=== PATIENT | male | born 1960 | race Caucasian/White ===

== ENCOUNTER 2017-10-12 12:15 | Emergency (ER) | payer BC ==
[2017-10-12] MEDS ORDERED: Sodium Chloride 0.9% 1000 ML 1,000 ML IV STA (12:17)
[2017-10-12 12:25] LABS: Mean Cell Volume 89.1 fl (78-100); Mean Corpuscular Hemoglobin 28.1 pg (26-32); Mean Platelet Volume 8.8 fl (6-9.5); Platelet Count 435 K/mm3 (150-450); Red Blood Count 4.66 M/mm3 (4.1-5.6); Red Cell Distribution Width 16.3 % (11.5-14.0); White Blood Count 16.3 K/mm3 (4.0-10.5)
--- NOTE | 2017-10-12 12:25 | ERPHSYRPT ---
- History of Present Illness Time Seen by Provider: 10/12/17 12:20 Source: patient, other (staff at cardiac rehabilitation) Exam Limitations: no limitations Physician History: This is a 57-year-old white male who I was called to respond for a rapid response. Patient was apparently at cardiac rehabilitation he has a history of atherosclerotic coronary artery disease had a bypass in the past apparently recently started on Flomax. States she's been having trouble standing up last several days he apparently was at cardiac rehabilitation got off the treadmill and had a near syncopal episode. On arrival patient is breathing patient does have a pulse he is vomiting. Patient is brought down to the emergency room him to monitor him with him patient was sinus rhythm approximately 90bpm he states that when he finished treadmill he began to feel weak apparently vomited he does not feel as if he passed out. Patient is alert and talking at this time. Patient is noted to have a blood pressure of 58 over 3 in the emergency room. Past medical history includes atherosclerotic coronary artery disease, high blood pressure, Patient states she's been having problems with his urine since bypass on August 23, 2017 and he was started on Flomax last week. Past surgical history includes CABG Social history patient denies tobacco alcohol or illicit drug use Timing/Duration: today (just prior to arrival to the emergency room) Severity: moderate Modifying Factors: Improves With: other (patient had just finished treadmill) Associated Symptoms: nausea, vomiting, diaphoresis, other (near syncopal episode in the emergency room with hypotension after treadmill), No abdominal pain, No shortness of breath, No heartburn, No cough, No chills, No chest pain, No fever, No headaches, No loss of appetite, No malaise, No rash Allergies/Adverse Reactions: No Known Drug Allergies Allergy (Verified 10/12/17 12:32) Home Medications: Allopurinol 300 mg [Zyloprim 300 mg] 300 mg DAILY 01/21/16 [History] Aspirin [Aspir-Low] 81 mg DAILY 10/12/17 [History] Labetalol HCl 100 mg [Trandate 100 MG] 100 mg DAILY 10/12/17 [History] Losartan Potassium 50 mg [Cozaar 50 MG] 50 mg DAILY 10/12/17 [History] Tamsulosin HCl 0.4 mg [Flomax 0.4 MG] 0.4 mg DAILY 10/12/17 [History] Zolpidem Tartrate [Ambien] 5 mg DAILY 10/12/17 [History] Hx Influenza Vaccination/Date Given: Yes - Review of Systems Constitutional: Malaise, Weakness, No Fever, No Chills, No Fatigue, No Lethargy , No Night Sweats, No Weight Loss Eyes: No Symptoms Ears, Nose, & Throat: No Symptoms, No Ear Pain, No Ear Discharge, No Hearing Changes, No Tinnitus, No Nose Pain, No Nose Congestion, No Nose Discharge, No Sinus Drainage, No Epistaxis, No Mouth Pain, No Mouth Swelling, No Loose Teeth, No Throat Pain, No Throat Swelling, No Hoarse, No Painful Swallowing, No Snoring Respiratory: No Cough, No Dyspnea Cardiac: Other (near syncopal episode with diaphoresis in cardiac rehabilitation) Abdominal/Gastrointestinal: Nausea, Vomiting Genitourinary Symptoms: Other (patient recently started on Flomax for urinary symptoms) Musculoskeletal: No Back Pain, No Neck Pain Skin: No Rash Neurological: Dizziness, No Focal Weakness, No Gait Changes, No Headache, No Irritability, No Lethargy, No Paralysis, No Parasthesia, No Seizure, No Sensory Changes, No Speech Changes, No Tics, No Tremors, No Vertigo, No Other ( near syncopal episode in cardiac rehabilitation) Psychological: No Symptoms Endocrine: No Symptoms All Other Systems: Reviewed and Negative - Past Medical History Pertinent Past Medical History: Yes Neurological History: No Pertinent History ENT History: Other Cardiac History: Hypertension Respiratory History: No Pertinent History Endocrine Medical History: No Pertinent History Musculoskeletal History: Other GI Medical History: GERD History: Other Psycho-Social History: No Pertinent History Male Reproductive Disorders: No Pertinent History Other Medical History: gout kidney stones. esohpageal stretching r/t difficulty swallowing - Past Surgical History Past Surgical History: Yes Neuro Surgical History: No Pertinent History Cardiac: No Pertinent History Respiratory: No Pertinent History Gastrointestinal: Other Genitourinary: No Pertinent History Musculoskeletal: No Pertinent History Male Surgical History: No Pertinent History Other Surgical History: throat surgery t&a nose surgery - Social History Smoking Status: Never smoker Exposure to second hand smoke: No Drug Use: none Patient Lives Alone: No - Nursing Vital Signs Nursing Vital Signs: Initial Vital Signs Temperature 97.8 F 10/12/17 12:17 Pulse Rate 94 H 10/12/17 12:17 Respiratory Rate 14 10/12/17 12:17 Blood Pressure 97/66 10/12/17 12:17 O2 Sat by Pulse Oximetry 100 10/12/17 12:17 Pain Scale Pain Intensity 0 - Physical Exam General Appearance: other (well-developed white male pale and diaphoretic) Eye Exam: PERRL/EOMI, eyes nml inspection Ears, Nose, Throat Exam: normal ENT inspection, TMs normal, pharynx normal, moist mucous membranes Neck Exam: normal inspection, non-tender, supple, full range of motion Respiratory Exam: other (lungs initially diminished) Cardiovascular Exam: regular rate/rhythm, normal heart sounds, normal peripheral pulses Gastrointestinal/Abdomen Exam: soft, normal bowel sounds, No tenderness, No mass Back Exam: normal inspection, normal range of motion, No CVA tenderness, No vertebral tenderness Extremity Exam: normal inspection, normal range of motion, pelvis stable Neurologic Exam: alert, oriented x 3, cooperative, normal mood/affect, nml cerebellar function, nml station & gait, sensation nml, No motor deficits Skin Exam: pale SpO2 Interpretation: normal (97% on 4 l body sander) - Course Nursing assessment & vital signs reviewed: Yes EKG Interpreted by Me: RATE (93 bpmj), Sinus Rhythm, Other (EKG: Sinus rhythm, 93 bpm axisSI/QIII pattern, Q waves in lead 3 and aVF, impression possible old inferior OH) - Radiology Exams Chest X-ray Interpretation: Discussed w/ radiologist (chest x-ray: New diffuse left lung interstitial alveolar opacity without consolidation/large effusion. Right lung clear. Heart is not enlarged and demonstrates interval CABG surgery. Bony thorax intact) Ordered Tests: Active Orders 24 hr Category Date Time Status Business Support Assistant STAT Care 10/12/17 12:17 Active EKG-ER Only STAT Care 10/12/17 12:17 Active IV Insertion STAT Care 10/12/17 12:17 Active Oxygen-ED Only NASAL CANNULA 2 lpm Care 10/12/17 12:17 Active Pulse Oximetry (ED) STAT Care 10/12/17 12:17 Active CHEST 1 VIEW (PORTABLE) Stat Exams 10/12/17 12:17 Completed BLOOD CULTURE Stat Lab 10/12/17 13:00 Received CBC W DIFF Stat Lab 10/12/17 12:15 Completed CMP Stat Lab 10/12/17 12:15 Completed CULTURE,URINE Stat Lab 10/12/17 13:55 Received D-DIMER QUANTITATION Stat Lab 10/12/17 12:15 Completed Manual Differential NC Stat Lab 10/12/17 12:15 Completed NT PRO BNP Stat Lab 10/12/17 12:15 Completed PROTIME WITH INR Stat Lab 10/12/17 12:15 Completed PTT Stat Lab 10/12/17 12:15 Completed TROPONIN Q3H Lab 10/12/17 12:15 Completed TROPONIN Q3H Lab 10/12/17 15:30 Ordered TROPONIN Q3H Lab 10/12/17 18:30 Ordered TROPONIN Q3H Lab 10/12/17 21:30 Ordered TROPONIN Q3H Lab 10/13/17 00:30 Ordered UA W/ MICROSCOPIC Stat Lab 10/12/17 13:55 Completed Medication Summary Generic Name Dose Route Start Last Admin Trade Name Freq PRN Reason Stop Dose Admin Ceftriaxone Sodium/Dextrose 1 g in 50 mls @ 100 mls/hr 10/12/17 13:58 Rocephin 1 Gm-D5w 50 Ml Bag IV 10/12/17 14:27 STAT STA Discontinued Medications Generic Name Dose Route Start Last Admin Trade Name Freq PRN Reason Stop Dose Admin Enoxaparin Sodium 90 mg 10/12/17 14:00 Enoxaparin Sodium 1 mg/kg (90 mg) 10/12/17 14:01 SQ STAT ONE Sodium Chloride 1,000 mls @ 999 mls/hr 10/12/17 12:17 10/12/17 12:17 Sodium Chloride 0.9% 1000 Ml IV 10/12/17 13:17 999 mls/hr .Q1H1M STA Administration Sodium Chloride Confirm 10/12/17 12:37 Sodium Chloride 0.9% 1000 Ml Administered 10/12/17 12:38 Dose 1,000 mls @ ud .ROUTE .StartSpanish-Olapic ONE Lab/Rad Data: Laboratory Result Diagrams 10/12/17 12:15 10/12/17 12:15 Laboratory Results 10/12/17 10/12/17 10/12/17 Range/Units 13:55 12:15 12:15 WBC (4.0-10.5) K/mm3 RBC (4.1-5.6) M/mm3 Hgb (12.5-18.0) gm/dl Hct (42-50) % MCV (78-100) fl MCH (26-32) pg MCHC (32-36) g/dl RDW (11.5-14.0) % Plt Count (150-450) K/mm3 MPV (6-9.5) fl Segmented Neutrophils (36.-66.) % Lymphocytes (Manual) (24-44) % Monocytes (Manual) (0.0-12.0) % Differential Comment Atypical Lymphocytes % Toxic Granulation Platelet Estimate (NORMAL) Anisocytosis INR 1.27 (0.8-3.0) APTT 33.0 (24.1-36.1) SECONDS D-Dimer 740 H* (0-500) ng/mL Sodium (136-145) mEq/L Potassium (3.5-5.1) mEq/L Chloride (98-107) mEq/L Carbon Dioxide (21-32) mEq/L Anion Gap (5-15) MEQ/L BUN (9-20) mg/dL Creatinine (0.55-1.30) mg/dl Estimated GFR ML/MIN Glucose (70-110) MG/DL Calcium (8.5-10.1) mg/dL Total Bilirubin (0.2-1.0) mg/dL AST (15-37) U/L ALT (12-78) U/L Alkaline Phosphatase (46-116) U/L Troponin I < 0.017 (0.000-0.056) ng/ml NT-Pro-B Natriuret Pep (0-125) pg/ml Serum Total Protein (6.4-8.2) gm/dL Albumin (3.4-5.0) g/dL Ur Collection Type VOID Urine Color BROWN (YELLOW) Urine Appearance HAZY (CLEAR) Urine pH 7.0 (5-6) Ur Specific [place] 1.005 (1.005-1.025) Urine Protein TRACE (Negative) Urine Ketones NEGATIVE (NEGATIVE) Urine Blood 250 (0-5) Rafi/ul Urine Nitrite NEGATIVE (NEGATIVE) Urine Bilirubin NEGATIVE (NEGATIVE) Urine Urobilinogen NORMAL (0-1) mg/dL Ur Leukocyte Esterase 2+ (NEGATIVE) Urine Microscopic RBC 15-25 (0-2) /HPF Urine Microscopic WBC 50-100 (0-5) /HPF Ur Epithelial Cells FEW (FEW) /HPF Urine Bacteria FEW (NEGATIVE) /HPF Urine Culture Reflexed YES (NO) Urine Glucose NEGATIVE (NEGATIVE) mg/dL Specimen Received 10/12/2017 1355 10/12/17 10/12/17 Range/Units 12:15 12:15 WBC 16.3 H (4.0-10.5) K/mm3 RBC 4.66 (4.1-5.6) M/mm3 Hgb 13.1 (12.5-18.0) gm/dl Hct 41.5 L (42-50) % MCV 89.1 (78-100) fl MCH 28.1 (26-32) pg MCHC 31.6 L (32-36) g/dl RDW 16.3 H (11.5-14.0) % Plt Count 435 (150-450) K/mm3 MPV 8.8 (6-9.5) fl Segmented Neutrophils 67 H (36.-66.) % Lymphocytes (Manual) 18 L (24-44) % Monocytes (Manual) 14 H (0.0-12.0) % Differential Comment ABNORMAL Atypical Lymphocytes 1 % Toxic Granulation 1+ Platelet Estimate INCREASED (NORMAL) Anisocytosis 1+ INR (0.8-3.0) APTT (24.1-36.1) SECONDS D-Dimer (0-500) ng/mL Sodium 140 (136-145) mEq/L Potassium 4.3 (3.5-5.1) mEq/L Chloride 105 (98-107) mEq/L Carbon Dioxide 22.2 (21-32) mEq/L Anion Gap 17.4 H (5-15) MEQ/L BUN 13 (9-20) mg/dL Creatinine 1.87 H (0.55-1.30) mg/dl Estimated GFR 40 ML/MIN Glucose 105 (70-110) MG/DL Calcium 9.7 (8.5-10.1) mg/dL Total Bilirubin 0.30 (0.2-1.0) mg/dL AST 21 (15-37) U/L ALT 32 (12-78) U/L Alkaline Phosphatase 80 (46-116) U/L Troponin I (0.000-0.056) ng/ml NT-Pro-B Natriuret Pep 250 H (0-125) pg/ml Serum Total Protein 7.8 (6.4-8.2) gm/dL Albumin 3.5 (3.4-5.0) g/dL Ur Collection Type Urine Color (YELLOW) Urine Appearance (CLEAR) Urine pH (5-6) Ur Specific [place] (1.005-1.025) Urine Protein (Negative) Urine Ketones (NEGATIVE) Urine Blood (0-5) Rafi/ul Urine Nitrite (NEGATIVE) Urine Bilirubin (NEGATIVE) Urine Urobilinogen (0-1) mg/dL Ur Leukocyte Esterase (NEGATIVE) Urine Microscopic RBC (0-2) /HPF Urine Microscopic WBC (0-5) /HPF Ur Epithelial Cells (FEW) /HPF Urine Bacteria (NEGATIVE) /HPF Urine Culture Reflexed (NO) Urine Glucose (NEGATIVE) mg/dL Specimen Received - Progress Progress: improved Progress Note: 10/12/17 12:29 This is a 57-year-old white male with history of atherosclerotic coronary artery disease with recent coronary artery bypass graft. Who had what appeared to be a near syncopal episode down in cardiac rehabilitation just prior to being brought down to the emergency room. Code rylan was called on arrival to the cardiac rehabilitation patient was noted to be sitting in a chair and was quite diaphoretic and pale in color he had vomited he did have a palpable pulse and he was able to respond. He is brought down to the emergency room patient is noted to have sinus sinus rhythm rhythm on the monitor patient with a palpable pulse on arrival blood pressure in the emergency room 97/59 Patient is currently satting 100% on 4 L of oxygen he was 97% he is alert and oriented he has full range of motion to his extremities. Patient does state that he recently was having problems with a urinary infection he has recently been placed on Flomax one week ago. Patient is receiving 1 L of normal saline CBC CMP troponin and d-dimer chest x- ray EKG have been ordered 10/12/17 14:01 Patient appears to be stable at this time blood pressure is stable pulse is stable. D-dimer is mildly elevated unfortunately patient's GFR is 40 and cannot get CTA. Troponin within normal limits. Chest x-ray shows new diffuse left lung interstitial alveolar opacity without consolidation/large effusion Case is discussed with Dr. Partida the patient's judicial assistant. He requests that the patient be given 1 dose of Lovenox 1 mg/kg subcutaneously,. Place on Rocephin 1 g IV. And transferred to [facility] for further evaluation and treatment. 10/12/17 14:24 patient with 50-100 white cells per high-power field in his urine. Patient has received IV normal saline and Rocephin. - Departure Time of Disposition: 14:02 Departure Disposition: Transfer ([facility] Dr. Partida) Clinical Impression: near syncopal episode, increased d-dimer, left lung interstitial opacity UTI (urinary tract infection) Qualifiers: Urinary tract infection type: site unspecified Hematuria presence: with hematuria Qualified Code(s): N39.0 - Urinary tract infection, site not specified ; R31.9 - Hematuria, unspecified; R31.9 - Hematuria, unspecified Condition: Fair Critical Care Time: Yes Critical Care Time(excluding separately billable procedures): 30-74 minutes Referrals: MELVIN EL MD [Primary Care Provider] -
[2017-10-12] MEDS ORDERED: Sodium Chloride 0.9% 1000 ML 1,000 ML ONE (12:37)
[2017-10-12 12:39] LABS: INR 1.27 (0.8-3.0); PROTIME 14.2 SECONDS (8.83-12.87)
[2017-10-12 12:58] LABS: ALBUMIN 3.5 g/dL (3.4-5.0); ANION GAP 17.4 MEQ/L (5-15); BILIRUBIN,TOTAL 0.3 mg/dL (0.2-1.0); Carbon Dioxide 22.2 mEq/L (21-32); Potassium 4.3 mEq/L (3.5-5.1); Total Protein 7.8 gm/dL (6.4-8.2)
--- NOTE | 2017-10-12 13:02 | XRAY ---
Indication: Syncopal episode. Vomiting. Low blood pressure. Comparison: January 20, 2016. Portable apical lordotic chest demonstrates new diffuse left lung interstitial alveolar opacity without consolidation/large effusion. Right lung clear. Heart is not enlarged and demonstrates interval CABG surgery. Bony thorax intact.
[2017-10-12 13:46] LABS: ANISOCYTOSIS 1+; ATYPICAL LYMPHS 1 %; Platelet Estimate INCREASED (NORMAL); Total Cells Counted 100
[2017-10-12 13:47] LABS: Toxic Granulation 1+
[2017-10-12] MEDS ORDERED: ROCEPHIN 1 Gm-D5w 50 ml Bag** 1 G/50 ML IVPB IV STA (13:58)
[2017-10-12] MEDS ORDERED: ENOXAPARIN SODIUM SQ ONE ×2 (14:00→14:34)
[2017-10-12 14:01] LABS: Collection Type VOID
[2017-10-12 14:02] LABS: Bilirubin NEGATIVE (NEGATIVE); Blood 250 Ery/ul (0-5); COMPLETE URINE MICROSCOPIC? YES; Glucose NEGATIVE (NEGATIVE); Leukocyte Esterase 2+ (NEGATIVE)
[2017-10-12 14:04] LABS: ADD URINE CULTURE? YES (NO)
[2017-10-12 14:14] LABS: WBC 50-100 /HPF (0-5)
[2017-10-12 14:15] LABS: Bacteria FEW /HPF (NEGATIVE); Epithelial Cells FEW /HPF (FEW)
[2017-10-12] MEDS ORDERED: ROCEPHIN 1 Gm-D5w 50 ml Bag** 1 G/50 ML IVPB IV ONE (14:34)
[2017-10-12 14:45] VITALS: BP 129/76; PULSE 86; O2SAT 98
== END 2017-10-12 15:02 | disposition short-term general hospital (02) ==
LOC: ED 12:15
DX: N39.0 Urinary tract infection, site not specified (principal); R31.9 Hematuria, unspecified; J84.9 Interstitial pulmonary disease, unspecified; R79.1 Abnormal coagulation profile; R55 Syncope and collapse; R11.2 Nausea with vomiting, unspecified; I25.10 Atherosclerotic heart disease of native coronary artery without angina pectoris; I10 Essential (primary) hypertension
CPT/HCPCS: 36000; 36415; 71010; 80053; 81000; 83880; 84484; 85025; 85379; 85610; 85730; 87040; 87086; 93005; 93041; 94799; 96360; 96361; 96365; 96372; 99285; J0696; J1650

== ENCOUNTER 2017-10-19 10:26 | Day surgery (SDC) | payer BC ==
--- NOTE | 2017-10-19 08:53 | HP ---
DATE OF SURGERY: 10/19/2017 HISTORY OF PRESENT ILLNESS: This is a 57 year-old who had Thomas catheter issue after a coronary artery bypass graft in August. He has history of polyps in the past. Last colonoscopy was about three years ago by Dr. Hammer. No bloody stools. No change in bowel movements. No abdominal pain. Family history negative for colon cancer. Question in the past of some air bubbles on urination. There was question whether he had some sort of colovesicular fistula or not. He has seen Dr. Hedrick for cystoscopy. He is in need of colonoscopy for evaluation. PAST MEDICAL HISTORY: Kidney stones, heart disease, diabetes. PAST SURGICAL HISTORY: Includes nose surgery, heart surgery, renal stone as well as some throat surgery in the past. She did have coronary artery bypass graft in the past. MEDICATIONS: Includes omeprazole, aspirin, Plavix, losartan, labetalol, Ambien, atorvastatin, metronidazole, levothyroxine, Tamsulosin. ALLERGIES: NKDA. FAMILY HISTORY: Hypertension, diabetes. SOCIAL HISTORY: No smoking or alcohol abuse. REVIEW OF SYSTEMS: Twelve systems reviewed per admission assessment. No chest pain or palpitations other systems negative or noncontributory as above and per preadmission questionnaire. No current abdominal pain. History of polyps. Question of air bubbles on urination. PHYSICAL EXAMINATION: GENERAL: No acute distress. HEENT: Sclerae nonicteric. NECK: No JVD. CHEST: Equal excursion, nonlabored breathing. CVS: Regular rate and rhythm. ABDOMEN: Soft. No peritoneal signs. EXTREMITIES: No significant edema. NEURO: Alert, moving extremities symmetrically. No gross motor deficits noted. RECTAL: Deferred timed to endoscopy exam. IMPRESSION: History of polyps. History of question of passing mass or air bubbles on urination unclear could have possible colovesicle fistula. He is in need of colonoscopy for further evaluation. Shown the risk sheet and explained the procedure in detail but not limited to bleeding, infection, small risk of bowel injury or perforation possibly requiring open procedure, ongoing morbidity, small risk of missed or nondiagnosis or incomplete exam possibly requiring barium enema, other studies or procedures as well as bowel prep or sedation, postoperative risk of nausea or cramping but not limited to. He will have to see Dr. Hedrick for consideration of cystoscopy. He understands and agrees to the planned procedure and will proceed with outpatient colonoscopy under MAC anesthesia.
[2017-10-19] MEDS ORDERED: DIPRIVAN 200 MG/20 ML IV ONE (10:27)
[2017-10-19] MEDS ORDERED: Versed 2 MG/2 ML Injection IV ONE (10:27)
[2017-10-19] MEDS ORDERED: Lactated Ringers 1,000 ML IV SCH (11:00)
[2017-10-19 14:04] VITALS: BP 113/47; PULSE 70; O2SAT 98
--- NOTE | 2017-10-20 10:02 | OP ---
SURGERY DATE/TIME: 10/19/2017 1232 PREOPERATIVE DIAGNOSES: 1) History of polyps. 2) History of question of colovesical fistula passing bubbles of gas with urination. 3) Need for follow up colonoscopy. POSTOPERATIVE DIAGNOSES: 1) Somewhat poor prep limiting the exam. 2) Diverticulosis. 3) Small internal and external hemorrhoids. 4) Spasm with some mild inflammation sigmoid area versus prep irritation. PROCEDURES: Colonoscopy to cecum and terminal ileum with random cold biopsy patchy area of inflammation sigmoid colon. SURGEON: Dr. Robert Jimenez. ANESTHESIA: MAC. ESTIMATED BLOOD LOSS: Minimal. INDICATIONS: As noted above. Risks and benefits explained in detail but not limited to and consent obtained. DESCRIPTION OF PROCEDURE AND FINDINGS: The patient is taken to the operating room. MAC anesthesia introduced. After official time out and no disagreement with planned procedure, digital rectal exam did not reveal any rectal masses. He did have some internal and external hemorrhoids. Video colonoscope inserted and passed up the tortuous sigmoid. There was some spasm and some diverticulosis, a little bit of mild inflammation but no ramsey visible open communication with the bladder this is not uncommon. Cold biopsy had been taken on withdrawal of the scope of this patchy area of inflammation. Otherwise the scope was able to be navigated through this spasm area. There did not appear to be any visible mass but again this part of the colon would not completely relax to fully distend slightly limiting the exam along with the prep but no obvious gross mass could be visualized endoscopically. The scope was able to be passed in the much more wider open descending, transverse, ascending colon all the way around to the cecum. Appendiceal orifice and valve visualized as well as the very tip of the terminal ileum grossly unremarkable. The scope was slowly and carefully withdrawn. There were no signs of any large polyps, masses or obstructing lesions. Again, he had some diverticulosis and spasm. He had some patchy area of inflammation, whether this is inflammation due to prep irritation versus diverticular disease, a cold biopsy is taken for further evaluation. Again some spasm would not let the colon completely fully distend little bit limiting the exam but no obvious mass. The scope pulled back to the rectum. He had some small internal and external hemorrhoids. Cold biopsy had been taken of patchy area of inflammation sigmoid. The scope is withdrawn. Again there is no large visible opening to the bladder but this is not uncommon. The scope was withdrawn. Findings discussed with the family out in the waiting area. It should also be noted that he has an appointment to see his urologist with plans for cystoscopy. Otherwise may consider barium enema for further evaluation. I will see him back in the office next week.
== END 2017-10-19 14:16 | disposition home or self-care (01) ==
LOC: SDC 10:26
PROVIDERS: ATTEND Surgery
PROC: 0DBN8ZX Excision of Sigmoid Colon, Via Natural or Artificial Opening Endoscopic, Diagnostic (ICD-10-PCS; principal; 2017-10-19)
DX: K57.90 Diverticulosis of intestine, part unspecified, without perforation or abscess without bleeding (principal); K64.4 Residual hemorrhoidal skin tags; K64.8 Other hemorrhoids; K58.9 Irritable bowel syndrome, unspecified; I25.810 Atherosclerosis of coronary artery bypass graft(s) without angina pectoris; E11.9 Type 2 diabetes mellitus without complications; Z87.442 Personal history of urinary calculi; Z79.899 Other long term (current) drug therapy
CPT/HCPCS: 00810; J2250; J2704

== ENCOUNTER 2021-12-23 10:02 | Day surgery (SDC) | payer BC ==
--- NOTE | 2021-12-23 08:06 | HP ---
DATE OF SURGERY: 12/23/2021 HISTORY OF PRESENT ILLNESS: The patient is a 61-year-old with history of polyps, no bloody stools, no change in bowel movements. Family history negative for colon cancer, in need of follow up screening colonoscopy. I feel he is a candidate. PAST MEDICAL HISTORY: Heart disease, hypertension. PAST SURGICAL HISTORY: Nose surgery. Heart surgery. Colovesical fistula resection and takedown of the fistula and reanastomosis in the past. MEDICATIONS: Allopurinol, Chlorthalidone, labetalol, omeprazole, Plavix, Zetia. ALLERGIES: NKDA. FAMILY HISTORY: Hypertension. SOCIAL HISTORY: No smoking or alcohol abuse. REVIEW OF SYSTEMS: Fourteen systems reviewed. No chest pain or palpitations. Other systems negative or noncontributory as above and per preadmission questionnaire. PHYSICAL EXAMINATION: GENERAL: No acute distress. HEENT: Sclerae nonicteric. NECK: No JVD. CHEST: Equal excursion, nonlabored breathing. CVS: Regular rate and rhythm. ABDOMEN: Soft. No peritoneal signs. EXTREMITIES: No significant edema. NEURO: Alert, oriented, moving extremities symmetrically. RECTAL: Deferred timed to endoscopy exam. PSYCH: Appropriate mood and affect. IMPRESSION: History of polyps in need of follow up screening colonoscopy. I feel he is a candidate. Risks and benefits explained in detail including but not limited to bleeding or infection, risk of bowel injury or perforation possibly requiring open procedure, risk of missed or nondiagnosis or incomplete exam possibly requiring barium enema, other studies or procedures, general risk of anesthesia or sedation, risk of bowel prep but not limited to, consent obtained. Will proceed with outpatient follow up screening colonoscopy.
[2021-12-23] MEDS ORDERED: Lactated Ringers 1,000 ML IV SCH (10:30)
[2021-12-23] MEDS ORDERED: DIPRIVAN 200 MG/20 ML IV ONE (11:21)
[2021-12-23 12:42] VITALS: O2SAT 97
[2021-12-23 12:58] VITALS: BP 142/88; PULSE 55
--- NOTE | 2021-12-24 07:46 | OP ---
SURGERY DATE/TIME: 12/23/2021 1122 PREOPERATIVE DIAGNOSIS: Prior history of polyps in the past. History of colovesical fistula resected in the past and taken down. Need for follow up screening colonoscopy. POSTOPERATIVE DIAGNOSES: 1) Small early polyp versus hyperplastic lesion descending colon. 2) Very small raised lesion versus hyperplastic lesion versus early polyp rectum. 3) Mild diverticulosis left colon. PROCEDURES: 1) Colonoscopy to cecum. 2) Hot biopsy polypectomy small descending colon polyp. 3) Hot biopsy removal of small vague raised lesion versus early polyp or hyperplastic lesion rectum. 4) ASA Class III. 5) Withdrawal time about 8 minutes. SURGEON: Dr. Robert Jimenez. ANESTHESIA: MAC. ESTIMATED BLOOD LOSS: Minimal. INDICATIONS: As noted above. Risks and benefits explained in detail but not limited to and consent obtained. DESCRIPTION OF PROCEDURE AND FINDINGS: The patient is taken to the endoscopy room. MAC anesthesia induced. After official time out and no disagreement with planned procedure, digital rectal exam did not reveal any rectal masses. Video colonoscope inserted and passed around to the slightly tortuous colon around to the patent anastostmosis. With external pressure down to the cecum, appendiceal orifice and valve well visualized and photo documented. The scope was then carefully withdrawn over the next eight minutes. Prep overall was fair, a little bit of liqudy semisolid stool and a few solid stool chunks suctioned and irrigated as clear as possible. The scope is slowly and carefully withdrawn. Coming down through the descending colon prior anastomotic site there were a few scattered small diverticula. There was a small early polyp versus hyperplastic lesion descending colon removed with hot biopsy forceps with brief bursts of cautery. Good hemostasis was noted. Anastomotic site was patent and intact. The scope pulled back to the rectum and a little liquidy stool in there suctioned irrigated as clear as possible. There was small vague raised area. Whether this is an early polyp versus hyperplastic lesion removed with hot biopsy forceps with brief bursts of cautery. Good hemostasis noted. The scope is withdrawn. The patient tolerated the procedure well. There were no immediate complications. Findings discussed with the family out in the waiting area.
== END 2021-12-23 13:05 | disposition home or self-care (01) ==
LOC: SDC 10:02
PROVIDERS: ATTEND Surgery
DX: Z09 Encounter for follow-up examination after completed treatment for conditions other than malignant neoplasm (principal); Z86.010 Personal history of colon polyps; K63.5 Polyp of colon; K57.30 Diverticulosis of large intestine without perforation or abscess without bleeding
CPT/HCPCS: 88305; J2704